=== PATIENT | female | born 1950 | race African-American/Black ===

== ENCOUNTER → 2020-04-24 | Outpatient (CLI) | payer MEDICARE ==
[2015-01-23 11:38] VITALS: BP 121/75
[~2020-04-24] MED LIST: ASPI325T8 PO; CITA10TA4 PO; CYCL10TA2 PO; HYDR-3164 PO; LISI-334 PO; NAPR500T8 PO; SIMV40TA18 PO
[2020-04-24 15:30] LABS: BASO % 1 % (0-3); EOS # 0.1 x10^3/uL (0.0-0.7); EOS % 1 % (0-3); HEMATOCRIT 37.5 % (36.0-47.0); HEMOGLOBIN 12.7 g/dL (12.0-15.5); LYMPH # 1.4 x10^3/uL (1.0-4.8); LYMPH % 28 % (24-48); MEAN CORPUSCULAR HEMOGLOBIN 28 pg (25-35); MEAN CORPUSCULAR HGB CONC 34 g/dL (31-37); MEAN CORPUSCULAR VOLUME 83 fL (79-100); MONO # 0.2 x10^3/uL (0.0-1.1); MONO % 4 % (0-9); NEUT # 3.2 x10^3/uL (1.8-7.7); NEUT % 66 % (31-73); PLATELET COUNT 185 x10^3/uL (140-400); RED BLOOD COUNT 4.52 x10^6/uL (3.50-5.40); RED CELL DISTRIBUTION WIDTH 14.5 % (11.5-14.5); WHITE BLOOD COUNT 4.9 x10^3/uL (4.0-11.0)
[2020-04-24 15:50] LABS: ALBUMIN 3.8 g/dL (3.4-5.0); ALBUMIN/GLOBULIN RATIO 1.1 (1.0-1.7); CALCIUM 8.6 mg/dL (8.5-10.1); CREATININE 1.1 mg/dL (0.6-1.0); GFR 59.4; POTASSIUM 3.8 mmol/L (3.5-5.1); TOTAL BILIRUBIN 0.9 mg/dL (0.2-1.0); TOTAL PROTEIN 7.2 g/dL (6.4-8.2)
[2020-04-25 20:08] LABS: ANA INTERP Positive (.)
== END | disposition home or self-care (01) ==
LOC: LAB 15:06
PROVIDERS: ATTEND Nurse Practitioner Family
DX: R44.3 Hallucinations, unspecified (principal); R41.0 Disorientation, unspecified
CPT/HCPCS: 36415; 80053; 82607; 82746; 84443; 85025; 86038; 86141

== ENCOUNTER → 2020-06-07 | Outpatient (CLI) | payer MEDICARE ==
[2015-01-23 11:38] VITALS: BP 121/75
--- NOTE | 2020-06-07 10:26 | RAD ---
BRAIN W/O CONTRAST Date: 06/07/2020 9:00 AM Indication: HALLUCINATIONS, CONFUSION Comparison: None. Technique: Multiplanar multisequence MRI of the brain was performed without intravenous contrast using the standard protocol. Findings: No acute infarct. No acute or chronic hemorrhage. The ventricles are normal in size and configuration without hydrocephalus. Moderate scattered FLAIR hyperintensities in the subcortical and periventricular deep white matter, a nonspecific finding, most commonly seen with chronic small vessel ischemic disease. Mild generalized cerebral volume loss. The scalp and calvarium are normal. The pituitary and sella are normal. No Chiari malformation. Incompletely characterized degenerative spondylosis of the visualized upper cervical spine. The visualized orbits and globes are normal. The visualized paranasal sinuses are clear. The mastoid air cells are clear. Normal flow voids within the vertebral, basilar, and internal carotid arteries indicating patency. IMPRESSION: 1. No acute infarct, hemorrhage, mass, or hydrocephalus. 2. Moderate chronic small vessel ischemic disease and mild generalized cerebral volume loss. Electronically signed by: Javad Best MD (06/07/2020 10:23 AM) [id number]
== END | disposition home or self-care (01) ==
LOC: MRI 09:00
PROVIDERS: ATTEND Nurse Practitioner Family
DX: I67.82 Cerebral ischemia (principal); R41.0 Disorientation, unspecified; R44.3 Hallucinations, unspecified; M47.812 Spondylosis without myelopathy or radiculopathy, cervical region
CPT/HCPCS: 70551

== ENCOUNTER → 2020-06-26 | Outpatient (CLI) | payer MEDICARE ==
[2015-01-23 11:38] VITALS: BP 121/75
--- NOTE | 2020-06-26 16:06 | EEG ---
DATE OF SERVICE: 06/26/2020 EEG NUMBER: [id number] OBJECTIVE: The patient is a 69-year-old female with hallucinations. DESCRIPTION: This is a digital study. Electrodes are placed according to international 10-20 system. Bipolar and referential montages are available. Activation procedures typically include hyperventilation and intermittent photic stimulation. INTERPRETATION: The waking background consists of 9-10 Hz, 50-100 microvolt activity, symmetrically distributed over parietooccipital regions and reactive to eye opening. Hyperventilation and intermittent photic stimulation are noncontributory. Stage 1 sleep is achieved with normal electroencephalogram patterns. IMPRESSION: This electroencephalogram with the patient awake and asleep is within normal limits. There is no focal, paroxysmal, or epileptiform activity. Thank you for letting us help with the patient's care. KATHLEEN KEYS MD DR: JULIEN/karla JOB#: [id number] / [id number] PETRONA Gallo
== END | disposition home or self-care (01) ==
LOC: RT 10:09
PROVIDERS: ATTEND Nurse Practitioner Family
DX: R44.2 Other hallucinations (principal)
CPT/HCPCS: 95816

== ENCOUNTER 2020-08-27 13:17 | Emergency (ER) | payer MEDICARE ==
[~2020-08-27] VITALS: Ht 167.6 cm; Wt 66.2 kg
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
[2020-08-27 15:46] LABS: BASO # 0.1 x10^3/uL (0.0-0.2); BASO % 1 % (0-3); BILIRUBIN,URINE SMALL (NEG); CLARITY,URINE CLOUDY; COLOR,URINE AMBER; EOS # 0.1 x10^3/uL (0.0-0.7); EOS % 1 % (0-3); HEMATOCRIT 35.1 % (36.0-47.0); HEMOGLOBIN 11.9 g/dL (12.0-15.5); LYMPH # 1.5 x10^3/uL (1.0-4.8); LYMPH % 31 % (24-48); MEAN CORPUSCULAR HEMOGLOBIN 28 pg (25-35); MEAN CORPUSCULAR HGB CONC 34 g/dL (31-37); MEAN CORPUSCULAR VOLUME 82 fL (79-100); MONO # 0.2 x10^3/uL (0.0-1.1); MONO % 5 % (0-9); NEUT # 2.9 x10^3/uL (1.8-7.7); NEUT % 62 % (31-73); NITRITE,URINE POSITIVE (NEG); PLATELET COUNT 171 x10^3/uL (140-400); PROTEIN,URINE 30 mg/dL (NEG-TRACE); RED BLOOD COUNT 4.28 x10^6/uL (3.50-5.40); RED CELL DISTRIBUTION WIDTH 14.1 % (11.5-14.5); WHITE BLOOD COUNT 4.8 x10^3/uL (4.0-11.0)
[2020-08-27 15:52] LABS: BACTERIA,URINE MANY /HPF (0-FEW); RBC,URINE 0 /HPF (0-2); WBC,URINE >40 /HPF (0-4)
[2020-08-27 15:58] LABS: CALCIUM 9.4 mg/dL (8.5-10.1); CREATININE 0.9 mg/dL (0.6-1.0); GFR 74.9; POTASSIUM 3.1 mmol/L (3.5-5.1)
--- NOTE | 2020-08-27 16:01 | RAD ---
CT head without contrast PQRS statement: CT scans at this facility use dose reduction including either automated exposure control, iterative reconstructions, and /or weight based radiation dosing via mA and kV modification when appropriate to reduce radiation dose to as low as reasonably achievable. HISTORY: Altered mental status. COMPARISON: MRI brain June 07, 2020. Streak artifact from the skull base across the middle and posterior cranial fossa decreases sensitivity to detect subtle pathology at these regions including infarcts. In light of this there is no discrete infarct evident. Patchy areas of cerebral white matter hypoattenuation present in a patient of this age statistically most likely represents sequela of chronic small vessel ischemic white matter injury, grossly similar to T2-weighted signal abnormality of the white matter on prior MR imaging. No intracranial hemorrhage, mass or hydrocephalus. Orbits, mastoids and bones are unremarkable. IMPRESSION: No acute abnormality. See above. Electronically signed by: Cj Tavares MD (08/27/2020 3:58 PM) [facility]
[2020-08-27 16:02] LABS: ALBUMIN 4.1 g/dL (3.4-5.0); ALBUMIN/GLOBULIN RATIO 1.2 (1.0-1.7); MAGNESIUM 2.3 mg/dL (1.8-2.4); TOTAL BILIRUBIN 1.4 mg/dL (0.2-1.0); TOTAL PROTEIN 7.6 g/dL (6.4-8.2)
[2020-08-27] MEDS ORDERED: POTASSIUM CHLORIDE 20 MEQ TABLET.ER. PO ONE (16:15)
[2020-08-27] MEDS ORDERED: cefTRIAXone IV Push 1 GM VIAL. IVP ONE (16:15)
[2020-08-27] MEDS ORDERED: CEPH-264 PO (18:04)
[2020-08-27 18:25] VITALS: BP 166/90
--- NOTE | 2020-08-28 08:58 | EKG ---
[facility] [address] [place] [address] Test Date: 2020-08-27 Test Time: 14:50:06 Pat Name: GRETCHEN JOHNSTON Department: Room: Gender: F Rod Welder: : 1950 Requested By: OMAR REIS Order Number: [id number] Reading MD: Measurements Intervals [place] Rate: 61 P: 38 NE: 178 QRS: 13 QRSD: 74 T: 52 QT: 398 QTc: 402 Interpretive Statements SINUS RHYTHM T ABNORMALITY IN ANTERIOR LEADS ABNORMAL ECG RI6.02 No previous ECG available for comparison
== END 2020-08-27 18:30 | disposition home or self-care (01) ==
LOC: ER 13:17
DX: N30.00 Acute cystitis without hematuria (principal); R44.3 Hallucinations, unspecified; F41.9 Anxiety disorder, unspecified; E78.00 Pure hypercholesterolemia, unspecified; I10 Essential (primary) hypertension; Z90.710 Acquired absence of both cervix and uterus; Z98.890 Other specified postprocedural states; Z88.8 Allergy status to other drugs, medicaments and biological substances
CPT/HCPCS: 36415; 70450; 80053; 81001; 82140; 82553; 83605; 83735; 84484; 85025; 87086; 93005; 96374; 99285; J0696